=== PATIENT | male | born 1940 | race Caucasian/White ===

== ENCOUNTER 2016-10-23 01:52 | Emergency (ER) | payer MEDICARE, OTHER ==
[~2016-10-23] VITALS: Ht 180.3 cm; Wt 108.9 kg
[~2016-10-23 01:52] MED LIST: ADVAIR DISKUS 21 DSK INH; ALBUTEROL1.25 MG/1 INH; ALLOPURINOL300 MG PO; ASCORBIC ACID500 M2 PO; BAYER ASPIRIN C81 MG PO; CRESTOR10 MG PO; FENOFIBRATE160 MG PO; FLAGYL 500MG.500 MG PO; HCTZ/TRIAMTEREN1 TA1 PO; LASIX 20MG. TAB20 MG PO; LASIX20 MG PO; LEVAQUIN 750 M750 MG PO; LOMOTIL 2.5MG.2.5 MG PO; LORTAB 5/500 501 TAB PO; LORTAB 500 MG-71 TAB PO; LOTREL1 CAP PO; LOVAZA1 GM PO; PHENERGAN 25MG.25 M1 PO; PLAVIX 75MG TAB75 MG PO; PLAVIX75 MG PO; POTASSIUM CHLO20 ME2 PO; PRILOSEC20 MG PO; PROAIR HFA0.09 MG/AC INH; PROVENTIL0.09 MG/A1 INH; RITE AID ASPIRI81 M1 PO; SPIRIVA HA1 PUFF/INH INH; SULFAMETHOXAZOL1 TA6 PO; TRAZADONE HYDR100 MG PO
[2016-10-23 02:06] LABS: LYMPH # 5.8 K/mm3 (0.7-4.5); LYMPH % 24.6 % (10-50)
[2016-10-23 02:09] LABS: HEMOGLOBIN 13.9 g/dL (14.1-18.0)
[2016-10-23 02:41] LABS: AEROMONAS NOT DETECTED (NOT DETECTE); ASTROVIRUS NOT DETECTED (NOT DETECTE); CYCLOSPORA CAYETANENSIS NOT DETECTED (NOT DETECTE); E COLI O157 NOT DETECTED (NOT DETECTE); ENTEROAGGREGATIVE E COLI NOT DETECTED (NOT DETECTE); ENTEROPATHOGENIC E COLI NOT DETECTED (NOT DETECTE); ENTEROTOXIGENIC E COLI NOT DETECTED (NOT DETECTE); NOROVIRUS NOT DETECTED (NOT DETECTE); SAPOVIRUS NOT DETECTED (NOT DETECTE); SHIGA-LIKE TOXIN PROD. E COLI NOT DETECTED (NOT DETECTE); SHIGELLA/ENTEROINVASIVE E COLI NOT DETECTED (NOT DETECTE); VIBRIO CHOLERAE NOT DETECTED (NOT DETECTE)
[2016-10-23 02:49] LABS: STOOL OCCULT BLOOD POSITIVE (NEG)
--- NOTE | 2016-10-23 03:19 | Emergency Room Report ---
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 PATIENT HAS SKIN TEAR TO RIGHT FA, LEFT FA ABRASIONS TO FACE.PATIENT REPORTS LEFT SHOULDER PAIN, RIGHT HAND PAIN, FOREHEAD AND FACE PAIN. PATIENT REPORTS HE IS WEAK BECAUSE HE HAS HAD DIARRHEA FOR 3 MONTHS. REPORTS HIS GRANDCHILD HAS HAD A STOMACH BUG AND IS CONCERNED HE MAY HAVE IT. 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 N Clinical Suspician of Infection? N Mental Status: 1 - Regular (Normal Baseline) Sepsis Risk:Possible Sepsis Risk Have you (or family members/close friends) recently traveled outside the [place]? N If Yes, where/when: Have you had exposure to infectious disease within the past month? TB? Other? Specify: Source patient, RN notes reviewed, family, EMS, old records Exam Limitations no limitations Comment fell off bedside toilet sec to weakness and chronic diarrhea - pt reports this is from colon cancer - pt is to have surg next week for possible cecal mass but dev inc abd pain /distention and vomiting tonight with weakness Cardiac Chest Pain Chest pain indicative of cardiac No Timing/Duration this morning Severity moderate ALLERGIES Coded Allergies: Penicillins (12/06/15) Home Medications Reported Medications Tiotropium [place] (Spiriva) 1 PUFF INH DAILY ALBUTEROL (Proventil Hfa Inhaler) 2 PUFF INH Q4HP PRN BREATHING Rosuvastatin Calcium (Crestor) 1 TAB PO Q48H HYDROCODONE 7.5MG/[id number] (Hydrocodon-Acetaminoph 7.5-500) 1 TAB PO Q6HP Furosemide (Lasix) 20 MG PO DAILY CLOPIDOGREL BISULFATE (PLAVIX) 75 MG PO DAILY AMLODIPINE BESYLATE/BENAZEPRIL (Lotrel 5-10 MG Capsule) 1 CAP PO DAILY Aspirin (Eva Chewable Aspirin) 81 MG PO DAILY OMEGA-3 ACID ETHYL ESTERS (Lovaza) 1 TAB PO DAILY Allopurinol 1 TAB PO DAILY Hydrochlorothiazide W/Triamter (Hctz/Triamterene 50 Mg-75 Mg) 1 TAB PO DAILY Fenofibrate (Fenofibrate 160MG (GEQ: Lofibra)) 1 TAB PO DAILY POTASSIUM CHL (Potassium Chloride) 1 TAB PO DAILY ALBUTEROL SULFATE (Accuneb) 1 INH Q4HPRN ASCORBIC ACID (Vitamin C) 1,000 MG PO DAILY History Medical History General CAD? Yes Angina: Yes MO: Yes Hypertension? Yes Hyperlipidemia? Yes CHF? No DVT? No PE? No COPD? Yes Asthma? No Anemia? No GERD? No Gastric ulcers? Yes GI Bleed? Yes Hernia? Yes Thyroid Problems? No Hypothyroidism? No CVA? No Seizures? No Diabetes? No Renal Insuffiency? No End Stage Renal Disease? No UTI? Yes Stones? Yes BPH? No GB Disease: Yes Nephritic Syndrome? No Asplenia? No Hepatitis? No Sickle Cell Disease? No Arthritis? No Migraines? No Cataracts? Yes Glaucoma? No MRSA? Yes HIV? No TB? No Anxiety? No Depression? Yes Cancer? Yes Site: SKIN Immunization Hx DT/Tetanus 5-10 Years Ago Flu [id number] Pneumonia Received In Past Surgical Hx Previous Surgery?Y BACK SURGERY CABG 5 VESSEL RIGHT HIP REPLACEMENT GALLBLADDER LEFT LEG SURGERY BILAT CATARACT REMOVAL SKIN CANCER REMOVED Family History Family Hx Diabetes No CAD Yes Hypertension Yes Hyperlipidemia Yes Cancer Yes TB No Social History Smoking Hx Smoker: Never Smoker Tobacco: No Alcohol Alcohol: No Drugs none Review of Systems All Other Systems Reviewed and Negative Constitutional see HPI, denies fever, weakness Eyes denies drainage ENT denies: ear discharge, epistaxis, throat pain. Respiratory see HPI, cough, denies shortness of breath, denies wheezing Cardiovascular denies chest pain, denies palpitations, denies syncope Gastrointestinal see HPI, abdominal pain, diarrhea, nausea Genitourinary denies: frequency, hesitancy, hematuria. Musculoskeletal denies back pain, denies joint pain, denies joint swelling, denies neck pain Skin see HPI, denies rash, other Psychiatric/Neurological denies headache, denies seizure Physical Exam Vital Signs Vital Signs Date Time Temp Pulse Resp B/P Pulse O2 O2 Flow FiO2 Ox Delivery Rate 10/23 0506 98.1 110 24 126/53 99 3 10/23 0413 98.6 104 22 134/59 99 3 10/23 0154 98.5 111 24 105/44 99 2 - WBC >12,000 or <4,000 or 10% bands? 2 or more SIRS Criteria Met? B/P:126/53 MAP: Creatinine >2.0? UA output<0.5ml/kg/hr for 2 hrs? Platelet count >100,000? Lactate >2.0mmol/1? INR >1.2 or PTT > than 60 sec? Evidence of Organ Dysfunction? Provider documented clinical suspician of infection? N Sepsis Criteria Count: 0 Sepsis Risk: Possible Sepsis Risk General Appearance no apparent distress Eye Exam - bilateral eye PERRL, bilateral eye EOMI Ear, Nose, Throat normal ENT inspection, dry mm Neck non-tender Respiratory Status No: respiratory distress. Lung Sounds bilateral: decreased breath sounds. 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 No Results/Orders Laboratory Tests 10/23/16 0240: Stool Occult Blood POSITIVE 10/23/16 0240: Lactic Acid 1.5, Stl Cyclospora species NOT DETECTED, Stool Rotavirus (PCR) NOT DETECTED, Stool Campylobacter PCR NOT DETECTED, Stool Giardia Lamblia PCR NOT DETECTED, Stl Norovirus GI/GII PCR NOT DETECTED, Adenovirus (PCR) NOT DETECTED, C. difficile Tox (PCR) NOT DETECTED, E. coli (PCR) NOT DETECTED, Yersinia (PCR) NOT DETECTED 10/23/16 0150: Sodium 137, Potassium 3.7, Chloride 100, Carbon Dioxide 20 L, BUN 58 H, Creatinine 4.9 H, Estimated Creat Clear 21 L, Estimated GFR (MDRD) 12, Glucose 187 H, Calcium 10.9 H, Total Bilirubin 0.7, AST 27, ALT 21, Alkaline Phosphatase 47, Total Protein 8.9 H, Albumin 3.7, Globulin 5.2 H, Albumin/ Globulin Ratio 0.7 L, WBC 23.0 *H, RBC 4.84, Hgb 13.9 L, Hct 44.7, MCV 92.4, RDW 16.0, Plt Count 422, MPV 8.6, Gran % 68.2, Gran # 16.1 H, Total Counted 100 , Lymphocytes % 24.6, Monocytes % 5.9, Eosinophils % 0.9, Basophils % 0.4, Neutrophils 73, Lymphocytes (Manual) 25, Lymphocytes # 5.8 H, Monocytes (Manual ) 1 L, Monocytes # 1.4 H, Eosinophils # 0.2, Eosinophils # (Manual) 1, Basophils # 0.1, Platelet Estimate NORMAL, Hypochromasia 1+, Poikilocytosis 1+, Anisocytosis 1+, PUBS MCHC 30.7 L, MCH 28.4 Current Medication Orders Sig/Jose Start time Last Medication Dose Route Stop Time Status Admin Ertapenem 1 GM ONCE ONE 10/23 529 r Sodium Chloride 50 ML IV 10/23 558 Famotidine 20 MG ONCE ONE 10/23 529 DC 10/23 IV 10/23 530 05 Metoclopramide HCl 10 MG ONCE ONE 10/23 529 DC IVP 10/23 530 Morphine Sulfate 4 MG ONCE ONE 10/23 529 DC IV 10/23 530 Sodium Chloride 8 ML ONCE ONE 10/23 529 DC IV 10/23 530 Famotidine 0 .STK-MED ONE 10/23 525 DC IV Sodium Chloride 50 ML .STK-MED ONE 10/23 525 DC IV Ertapenem 0 .STK-MED ONE 10/23 524 DCr .ROUTE Morphine Sulfate 0 .STK-MED ONE 10/23 524 DC .ROUTE Metoclopramide HCl 0 .STK-MED ONE 10/24 523 DC .ROUTE Albuterol/Ipratropium 3 ML ONCE ONE 10/23 444 DC 10/23 INH 10/23 445 0455 Albuterol/Ipratropium 0 .STK-MED ONE 10/23 441 DC INH Morphine Sulfate 0 .STK-MED ONE 10/23 346 DC .ROUTE Ondansetron HCl 0 .STK-MED ONE 10/23 0347 DC .ROUTE Sodium Chloride 1,000 ML .STK-MED ONE 10/23 0343 DC IV Ondansetron HCl 4 MG ONCE ONE 10/23 0215 DC 10/23 IV 10/23 0216 0205 Sodium Chloride 10 ML PRN PRN 10/23 021 AC 10/23 IV 10/24 0201 0529 Sodium Chloride 1,000 ML .Q1H1M 10/23 021 DC 10/23 IV 10/23 0315 0213 Sodium Chloride 10 ML PRN PRN 10/23 021 AC 10/23 IV 10/24 021 0214 Sodium Chloride 1,000 ML .STK-MED ONE 10/23 0204 DC IV Ondansetron HCl 0 .STK-MED ONE 10/23 0203 DC .ROUTE Orders Procedure Date/time Status DIET-NOTHING BY MOUTH 10/23 B Active RT REQUEST DUONEB 10/[address] CHEST W/O CONTRAST 10/[address] ABD & PELVIS W/O CONTRAST 10/[address] SCAN REQ 10/23 0348 Complete STOOL OCCULT BLOOD 10/23 0226 Complete DIARRHEA PANEL, PCR 10/23 0226 Complete CULTURE, BLOOD 10/23 0212 Active LACTIC ACID 10/23 021 Complete CHEST-PORTABLE 10/23 020 Active 12 LEAD EKG-BESSON (INITIAL) 10/23 020 Active ELECTROCARDIOGRAM REQUEST 10/23 0201 Active IV SALINE LOCK 10/23 0201 Active CBC WITH AUTO DIFF 10/23 020 Complete CHEM 12 PROFILE 10/23 0201 Complete DIFFERENTIAL-WBC 10/23 0150 Complete 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 ST/Twave chgs XRAY/CT/US XRAY/CT/US 1 XRAY chest XR interpretation by reviewed by me Xray Results abnormal XRAY/CT/US 2 CT abdomen, pelvis, chest CT interpretation by discussed w/radiologist Time results known: 444 CT Results abnormal (see report) Procedures Laceration/Wound Repair Laceration/Wound Repair Risks/benefits discussed with pt/guardian? Yes Tetanus status not up to date Wound Location forearm Wound Length (cm) 3 Wound's Depth, Shape superficial Wound Explored no FB identified Risk of retained FB explained to pt/guardian? Yes Irrigated w/ Saline (ccs) 0 Wound Prep Hibiclens, Saline Volume Anesthetic (ccs) 0 Wound Debrided none Wound Repaired With Dermabond Layer Closure No Total Number Sutures 0 Sterile Dressing Applied Yes Splint Applied No Sling Applied No Departure Departure Time of Disposition 0521 Disposition DC/XFER from ER to [facility] Clinical Impression Primary Impression: Ischemic bowel disease Secondary Impressions: ARF (acute renal failure) Qualifiers: Acute renal failure type: unspecified Qualified Code: N17.9 - Acute kidney failure, unspecified Skin tear of right forearm without complication Qualifiers: Encounter type: initial encounter Qualified Code: S51.811A - Laceration without foreign body of right forearm, initial encounter Condition STABLE Referrals Jimmy Thompson MD (Family) discussed with - dr noemy hurt surg ED Critical Care Critical Care Yes Time spent 75-104 min Vital system(s) involved: Renal Failure I was present at bedside for Coordinating pt's care, Interpreting EKGs/Strips , Reviewing lab results, Reviewing old records, Discussing pt condition, For re- examinations, Examining radiographs at 0525
[2016-10-23 04:36] LABS: NEUTROPHILS 73 % (42-76)
--- NOTE | 2016-10-23 05:51 | RADIOLOGY REPORT PS360 ---
CHEST-PORTABLE HISTORY: Shortness of breath FALL ORDERING PHYSICIAN: Luis Fernando Ford MD PATIENT AGE: 75 years COMPARISON: 07/20/2011 FINDINGS: There has been prior median sternotomy. There is COPD with right apical pleural thickening and evidence of old granulomatous disease with chronic changes. No acute bony anomalies.. IMPRESSION: COPD with chronic changes. No acute finding
[2016-10-23 06:01] VITALS: BP 122/68
--- NOTE | 2016-10-23 07:53 | RADIOLOGY REPORT PS360 ---
CT CHEST W/O CONTRAST HISTORY: Shortness of breath ABD PAIN, N/V ORDERING PHYSICIAN: Luis Fernando Ford MD PATIENT AGE: 75 years TECHNIQUE: Axial images obtained without contrast. Sagittal and coronal reformatted images also reviewed COMPARISON: 03/13/2015 FINDINGS: Prior median sternotomy with CABG. Atherosclerotic calcification is present involving the aorta and coronary arteries. Normal heart size. Centrilobular and paraseptal emphysematous changes are once again noted. There is a cavitary lesion in the right apex measuring 2.9 x 2.3 cm not significantly changed. This is associated with some apical pleural thickening. There is a new parenchymal opacity in the right upper lobe medially and posteriorly measuring 1.5 cm. There are atelectatic change right lung base. Mild subpleural atelectasis or fibrosis is present in the left upper lobe laterally and is developed in the interval. There are atelectatic changes in the left lung base. There is mild bronchiectasis in the lower lobes. Stable small pulmonary nodules are once again noted most of which are calcified. No acute bony anomalies. Upper abdominal images show portal venous gas as well as pneumatosis in the stomach and gas within the perigastric veins. IMPRESSION: 1. Centrilobular emphysematous changes with scattered areas of fibrosis and mild bronchiectasis with atelectatic changes. 2. No change cavitary lesion in the right apex associated pleural thickening. 3. Portal venous gas with gastric wall pneumatosis. Please see abdomen CT for further discussion
--- NOTE | 2016-10-23 08:06 | RADIOLOGY REPORT PS360 ---
CT ABD PELVIS W/O CONTRAST CLINICAL INDICATION: ABD PAIN, N/V ORDERING PHYSICIAN: Luis Fernando Ford MD PATIENT AGE: 75 years COMPARISON: 09/16/2016 TECHNIQUE: Axial images obtained with sagittal and coronal reformats. PROCEDURE: Oral Contrast: None IV Contrast: None . FINDINGS: Portal venous gas is present. There is also pneumatosis within a mildly distended stomach. Gas is also present within perigastric veins. No intestinal obstruction or free air. Fluid is present within the colon with a few scattered air-fluid levels consistent with colonic ileus or diarrhea. Hepatic cyst is noted in the left hepatic lobe. The spleen, adrenal glands, and pancreas have an unremarkable appearance. There is a small umbilical hernia containing fat. No evidence of appendicitis or diverticulitis. Nonobstructing right renal calculus. No hydronephrosis or ureteral calculi. Artifact is present from bilateral hip prosthesis. IMPRESSION: 1. Portal venous gas noted within the liver. Acute bowel ischemia may cause this finding. Gastric ischemia and acute gastric dilatation could also cause this finding. 2. Gastric pneumatosis with small amount of gas in the vein surrounding the stomach concerning for gastric ischemia 3. Fluid noted throughout the colon which may represent colitis/diarrhea disease
== END 2016-10-23 06:03 | disposition short-term general hospital (02) ==
LOC: ER 01:52
PROVIDERS: Emergency Medicine
PROC: 0HQDXZZ Repair Right Lower Arm Skin, External Approach (ICD-10-PCS; principal; 2016-10-23)
DX: K55.059 Acute (reversible) ischemia of intestine, part and extent unspecified (principal); S51.811A Laceration without foreign body of right forearm, initial encounter; N17.9 Acute kidney failure, unspecified; Z79.899 Other long term (current) drug therapy; J44.9 Chronic obstructive pulmonary disease, unspecified; I10 Essential (primary) hypertension; I25.10 Atherosclerotic heart disease of native coronary artery without angina pectoris
CPT/HCPCS: G0168; G0328; J1335; J2405

== ENCOUNTER → 2017-01-27 | Outpatient (CLI) | payer MEDICARE, OTHER ==
--- NOTE | 2017-01-27 12:01 | RADIOLOGY REPORT PS360 ---
CHEST(2 VIEWS-NOT PORTABLE) HISTORY: COPD, HX A-FIB ORDERING PHYSICIAN: Edison Rothman MD PATIENT AGE: 76 years COMPARISON: 10/23/2016 FINDINGS: There has been a prior median sternotomy. There is mild cardiomegaly without failure. COPD/emphysematous changes are present with scattered areas of pulmonary fibrosis and evidence of old granulomatous disease. There are small bilateral pleural effusions. Pleural-parenchymal opacity is once again noted in the right upper lobe. Previously on the CT scan of 10/23/2016 there was a cavitating area in this region. This may be slightly more prominent on today's exam compared to the previous radiograph of 10/23/2016. Left perihilar nodular density is present and may be due to pulmonary vessel. IMPRESSION: 1. Prior CABG with cardiomegaly and small bilateral pleural effusions with chronic changes. 2. Chronic opacity in the right upper lobe consistent with pleural-parenchymal changes as seen on the previous chest CT
== END ==
LOC: RAD 11:18
DX: J44.9 Chronic obstructive pulmonary disease, unspecified (principal); Z86.79 Personal history of other diseases of the circulatory system